=== PATIENT | female | born 1955 | race African-American/Black ===

== ENCOUNTER 2017-09-07 13:52 | Emergency (ER) | payer MEDICAID ==
[~2017-09-07] VITALS: Ht 162.6 cm; Wt 81.2 kg
[2017-09-07] MEDS ORDERED: KETOROLAC 60MG/2ML VIAL IM ONE (15:00)
[2017-09-07 15:31] VITALS: BP 159/82
== END 2017-09-07 17:41 | disposition home or self-care (01) ==
LOC: ER 14:08
DX: S50.02XA Contusion of left elbow, initial encounter (principal); R07.81 Pleurodynia; M79.1 Myalgia; Z90.710 Acquired absence of both cervix and uterus; Z98.890 Other specified postprocedural states; V43.52XA Car driver injured in collision with other type car in traffic accident, initial encounter; Y93.89 Activity, other specified; Y92.488 Other paved roadways as the place of occurrence of the external cause
CPT/HCPCS: 71101; 73080; 96372; 99284; J1885